=== PATIENT | male | born 1950 | race Caucasian/White ===

== ENCOUNTER 2017-02-25 07:01 | Emergency (ER) | payer MEDICARE, OTHER ==
[~2017-02-25] VITALS: Ht 177.8 cm; Wt 95.5 kg
[~2017-02-25 07:01] MED LIST: ACIP20TA19; ALBU1AER INH; ALLO100 PO; ALPR.25 PO; DOXY100T PO; LIBRAX PO; PRED20 PO; ZITH500T PO
[2017-02-25 07:08] VITALS: BP 166/90; PULSE 75; RESP 16; TEMP 98.2; O2SAT 98
[2017-02-25 07:13] VITALS: TEMP 97.9
[2017-02-25] MEDS ORDERED: ALBUAER3 INH (07:16)
[2017-02-25] MEDS ORDERED: MOME17I EACH NARE (07:17)
[2017-02-25] MEDS ORDERED: SODIUM CHLOR 0.9% 1000 ML INJ 1,000 ML IV SCH (07:29)
[2017-02-25] MEDS ORDERED: ONDANSETRON HCL 4 MG/2 ML VIAL IVP ONE (07:30)
[2017-02-25] MEDS ORDERED: SODIUM CHLORIDE 0.9% FLUSH 10 ML FLUSH IV FLUSH PRN (07:30)
[2017-02-25 07:33] VITALS: BP 135/74; PULSE 71; RESP 18; O2SAT 93
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
[2017-02-25 07:39] VITALS: O2SAT 94
[2017-02-25 08:04] LABS: AUTOMATED NEUTROPHIL # 5.7 TH/MM3 (1.8-7.7); BASOPHIL % 0.6 % (0.0-2.0); EOSINOPHIL # 0.1 TH/MM3 (0-0.4); EOSINOPHIL % 1.4 % (0.0-4.0); HEMATOCRIT 49.3 % (39.0-51.0); HEMO FLAGS DIFF FINAL; LYMPH % 16.4 % (9.0-44.0); LYMPHOCYTE # 1.3 TH/MM3 (1.0-4.8); MEAN CELL VOLUME 85.1 FL (80.0-100.0); MEAN CORPUSCULAR HEMOGLOBIN 29.1 PG (27.0-34.0); MEAN CORPUSCULAR HGB CONC 34.2 % (32.0-36.0); MONO % 10.4 % (0.0-8.0); NEUT % 71.2 % (16.0-70.0); PLATELET COUNT 213 TH/MM3 (150-450); RED BLOOD COUNT 5.79 MIL/MM3 (4.50-5.90); RED CELL DISTRIBUTION WIDTH 14.5 % (11.6-17.2); WHITE BLOOD COUNT 8.1 TH/MM3 (4.0-11.0)
[2017-02-25 08:17] LABS: ANION GAP 8 MEQ/L (5-15); AST (GOT) 20 U/L (15-37); BLOOD UREA NITROGEN 20 MG/DL (7-18); CHLORIDE 106 MEQ/L (98-107); GLOMERULAR FILTRATION RATE 66 ML/MIN (>89); POTASSIUM 4.1 MEQ/L (3.5-5.1); SODIUM (NA) 139 MEQ/L (136-145)
[2017-02-25 08:22] LABS: ALKALINE PHOSPHATASE 80 U/L (45-117); ALT (GPT) 32 U/L (12-78); TOTAL BILIRUBIN ADULT 0.2 MG/DL (0.2-1.0)
[2017-02-25 08:24] LABS: CREATINE KINASE 76 U/L (39-308)
[2017-02-25] MEDS ORDERED: DIATRIZOATE MEGLUM/DIATRIZOATE SOD 9 ML CUP ONE (08:43)
[2017-02-25 08:47] LABS: BLOOD, URINE TRACE (NEG); COMMENT (UR) CULT NOT INDICATED; CULTURE IF INDICATED CULT NOT INDICATED; GLUCOSE,URINE NEG (NEG); KETONE, URINE NEG (NEG); NITRITE,URINE NEG (NEG); URIC ACID CRYSTALS, URINE RARE /hpf; URINE COLOR YELLOW (YELLW/STRAW)
[2017-02-25] MEDS ORDERED: IOHEXOL 350 MG/ML 10 ML VIAL (for RAD DIAG) IV ONE (09:47)
--- NOTE | 2017-02-25 10:39 | RADRPT ---
EXAM DATE/TIME: 02/25/2017 09:41 [facility] COMPARISON: No previous studies available for comparison. INDICATIONS : Lower abdominal pain and nausea. IV CONTRAST: 97 cc Omnipaque 350 (iohexol) IV ORAL CONTRAST: No oral contrast ingested. RADIATION DOSE: 14.92 CTDIvol (mGy) MEDICAL HISTORY : Diverticulitis. Renal calculi. Chronic obstructive pulmonary disease.Gastritis. SURGICAL HISTORY : Cholecystectomy. ENCOUNTER: Initial ACUITY: 1 day PAIN SCALE: 4/10 LOCATION: Bilateral lower quadrant TECHNIQUE: Volumetric scanning of the abdomen and pelvis was performed. Using automated exposure control and ad justment of the mA and/or kV according to patient size, radiation dose was kept as low as reasonably achievable to obtain optimal diagnostic quality images. FINDINGS: The limited portion of the lung base visualized is clear. Examination of the liver demonstrates a 1 cm low attenuation lesion. This is nonspecific in appearanc e. The hepatic parenchyma is otherwise normal in appearance. The patient is post cholecystectomy. The spleen, pancreas, adrenal glands and kidneys are intact. There is no retroperitoneal adenopathy. The abdominal aorta is normal in caliber. No free intraperitoneal air is identified. No free intraperitoneal fluid is identified. The visualize d loops of small and large bowel demonstrates scattered diverticuli throughout the colon but no infla mmatory changes are identified. No abscess is seen. No findings to indicate bowel obstruction are mina dent. The visualized bony structures demonstrate degenerative changes but are otherwise intact. CONCLUSION: 1. No definite abnormality to explain the patient's abdominal pain is identified. 2. Incidental 1 cm low attenuation lesion within the liver. This is nonspecific in appearance by CT. Esteban Esquivel MD on February 25, 2017 at 9:52 Board Certified Radiologist. This report was verified electronically.
[2017-02-25] MEDS ORDERED: ZOFR4TAB3 SL (10:53)
--- NOTE | 2017-02-25 13:38 | EKG ---
Date Performed: 02/25/2017 Time Performed: 07:38:55 PTAGE: 66 years EKG: Sinus rhythm NORMAL ECG NO PREVIOUS TRACING DOCTOR: José Manuel Jimenez Interpretating Date/Time 02/25/2017 13:36:15
== END 2017-02-25 11:32 | disposition home or self-care (01) ==
LOC: NEPE 07:01
DX: E86.0 Dehydration (principal); K76.9 Liver disease, unspecified
CPT/HCPCS: 74177; 80053; 81001; 82550; 84484; 85025; 93005; 96361; 96374; 99284; J2405; J7030; Q9963; Q9967

== ENCOUNTER 2017-04-15 01:38 | Emergency (ER) | payer MEDICARE, OTHER ==
[~2017-04-15] VITALS: Ht 182.9 cm; Wt 99.0 kg
[~2017-04-15 01:38] MED LIST changes: -ACIP20TA19; -ALBU1AER INH; +ALBUAER3 INH; -ALLO100 PO; -ALPR.25 PO; -DOXY100T PO; -LIBRAX PO; +MOME17I EACH NARE; -PRED20 PO; -ZITH500T PO; +ZOFR4TAB3 SL
[2017-04-15 01:41] VITALS: BP 160/80; PULSE 79; RESP 16; TEMP 97.6; O2SAT 96
[2017-04-15 01:59] VITALS: BP 159/86; PULSE 77; RESP 18; O2SAT 98
[2017-04-15] MEDS ORDERED: SODIUM CHLOR 0.9% 1000 ML INJ 1,000 ML IV SCH (02:06)
[2017-04-15] MEDS ORDERED: SODIUM CHLORIDE 0.9% FLUSH 10 ML FLUSH IV FLUSH PRN (02:15)
[2017-04-15] MEDS ORDERED: ONDANSETRON HCL 4 MG/2 ML VIAL IVP ONE (02:15)
[2017-04-15] MEDS ORDERED: MORPHINE SULFATE 4 MG/ML INJ IV PUSH ONE (02:15)
--- NOTE | 2017-04-15 02:29 | PD ---
HPI Chief Complaint: Flank/Kidney Pain Time Seen by Provider: 02:06 Travel History International Travel<30 days: No Contact w/Intl Traveler<30days: No Traveled to known affect area: No History of Present Illness HPI 66-year-old male came to the emergency room with history of left flank pain and suprapubic pain for past 12 hours. Patient says the pain started slowly but he was unable to get comfortable or sleep and decided to come to the emergency room. No history of hematuria or dysuria. He has been nauseous but has not vomited. He has history of diverticulosis as per colonoscopy done 2 months ago and has history of uric acid kidney stone. However he has been on allopurinol for past 2 years and has not formed any stones. Vital signs were within normal limits. No history of fever or chills. Patient says he has been constipated for 3 days up until 3 days ago when he decided to go to his primary care. He also told his primary care that his abdomen did not feel well and he was started on clindamycin considering the possible diagnosis of diverticulitis. Since past 3 days he's started to have bowel movements little by little. Yesterday he had 7 bowel movements but they were not loose. His appetite has been good. [facility] Past Medical History Narrative Medical List of his past medical, surgical and social history was reviewed from the nursing note. Hx Anticoagulant Therapy: No Arthritis: Yes Asthma: Yes COPD: Yes Diminished Hearing: No Diverticulitis: Yes Gastrointestinal Disorders: Yes (CHRONIC GASTRITIS) GERD: Yes Genitourinary: Yes Kidney Stones: Yes (URIC ACID KIDNEY STONES) Medical other: Yes (hx of skin CA) Neurologic: Yes (PTSD) Respiratory: Yes (CHRONIC SINUSITIS) Immunizations Current: Yes Tetanus Vaccination: < 5 Years Influenza Vaccination: No Past Surgical History Cholecystectomy: Yes Social History Alcohol Use: No Tobacco Use: Yes (occasional cigar) Substance Use: No Allergies-Medications (Allergen,Severity, Reaction): Coded Allergies: Cipro (Verified Allergy, Severe, HIVES, 04/15/17) Flagyl (Verified Allergy, Severe, HIVES; CHILLS, 04/15/17) Levaquin (Verified Allergy, Severe, HIGH TEMP AND HIVES, 04/15/17) Penicillin (Verified Allergy, Unknown, CHILDHOOD, 04/15/17) Comments List of his allergies reviewed from the nursing note. Reported Meds & Prescriptions Reported Meds & Active Scripts Active Zofran Odt (Ondansetron Odt) 4 Mg Tab 4 Mg SL Q8HR PRN Reported Nasonex Nasal [place] (Mometasone Furoate) 50 Mcg/Act Naspr 2 [place] EACH NARE DAILY Proair Hfa 8.5 GM Inh (Albuterol Sulfate) 90 Mcg/Act Aer 2 Puff INH Q6H PRN 108 mcg/actuation Narrative Medication List of his home medications reviewed from the nursing note. Review of Systems Except as stated in HPI: all other systems reviewed are Neg Physical Exam Narrative GENERAL: Awake, alert, obese, moderate distress SKIN: Focused skin assessment warm/dry. HEAD: Atraumatic. Normocephalic. EYES: Pupils equal and round. No scleral icterus. No injection or drainage. ENT: No nasal bleeding or discharge. Mucous membranes pink and moist. NECK: Trachea midline. No JVD. CARDIOVASCULAR: Regular rate and rhythm. No murmur appreciated. RESPIRATORY: No accessory muscle use. Clear to auscultation. Breath sounds equal bilaterally. GASTROINTESTINAL: Abdomen soft, suprapubic tenderness, nondistended. Hepatic and splenic margins not palpable. MUSCULOSKELETAL: No obvious deformities. No clubbing. No cyanosis. No edema. NEUROLOGICAL: Awake and alert. No obvious cranial nerve deficits. Motor grossly within normal limits. Normal speech. PSYCHIATRIC: Appropriate mood and affect; insight and judgment normal. Data Data Last Documented VS Vital Signs Date Time Temp Pulse Resp B/P Pulse Ox O2 Delivery O2 Flow Rate FiO2 04/15/17 06:08 62 18 137/80 96 04/15/17 05:20 Room Air 04/15/17 01:41 97.6 Orders Complete Blood Count With Diff (04/15/17 02:06) Comprehensive Metabolic Panel (04/15/17 02:06) Urinalysis - C+S If Indicated (04/15/17 02:06) Ct Abd/Pel W/O Iv Contrast (04/15/17 02:06) Iv Access Insert/Monitor (04/15/17 02:06) Ecg Monitoring (04/15/17 02:06) Oximetry (04/15/17 02:06) Morphine Inj (Morphine Inj) (04/15/17 02:15) Ondansetron Inj (Zofran Inj) (04/15/17 02:15) Sodium Chlor 0.9% 1000 Ml Inj (Ns 1000 M (04/15/17 02:06) Sodium Chloride 0.9% Flush (Ns Flush) (04/15/17 02:15) Ketorolac Inj (Toradol Inj) (04/15/17 02:30) Metronidazole (Flagyl) (04/15/17 05:00) Clindamycin Inj (Cleocin Inj) (04/15/17 05:00) Ondansetron Inj (Zofran Inj) (04/15/17 06:00) Labs Laboratory Tests Test 04/15/17 04/15/17 02:20 03:20 White Blood Count 11.5 TH/MM3 Red Blood Count 5.59 MIL/MM3 Hemoglobin 15.6 GM/DL Hematocrit 46.7 % Mean Corpuscular Volume 83.5 FL Mean Corpuscular Hemoglobin 28.0 PG Mean Corpuscular Hemoglobin 33.5 % Concent Red Cell Distribution Width 14.5 % Platelet Count 202 TH/MM3 Mean Platelet Volume 9.2 FL Neutrophils (%) (Auto) 75.4 % Lymphocytes (%) (Auto) 14.5 % Monocytes (%) (Auto) 8.7 % Eosinophils (%) (Auto) 0.9 % Basophils (%) (Auto) 0.5 % Neutrophils # (Auto) 8.6 TH/MM3 Lymphocytes # (Auto) 1.7 TH/MM3 Monocytes # (Auto) 1.0 TH/MM3 Eosinophils # (Auto) 0.1 TH/MM3 Basophils # (Auto) 0.1 TH/MM3 CBC Comment DIFF FINAL Differential Comment Sodium Level 140 MEQ/L Potassium Level 4.3 MEQ/L Chloride Level 107 MEQ/L Carbon Dioxide Level 27.1 MEQ/L Anion Gap 6 MEQ/L Blood Urea Nitrogen 16 MG/DL Creatinine 1.28 MG/DL Estimat Glomerular Filtration 56 ML/MIN Rate Random Glucose 119 MG/DL Calcium Level 8.5 MG/DL Total Bilirubin 0.3 MG/DL Aspartate Amino Transf 20 U/L (AST/SGOT) Alanine Aminotransferase 23 U/L (ALT/SGPT) Alkaline Phosphatase 81 U/L Total Protein 7.4 GM/DL Albumin 3.5 GM/DL Urine Color LIGHT-YELLOW Urine Turbidity CLEAR Urine pH 6.5 Urine Specific [place] 1.010 Urine Protein NEG mg/dL Urine Glucose (UA) NEG mg/dL Urine Ketones NEG mg/dL Urine Occult Blood NEG Urine Nitrite NEG Urine Bilirubin NEG Urine Urobilinogen LESS THAN 2.0 MG/DL Urine Leukocyte Esterase NEG Urine RBC 1 /hpf Urine WBC LESS THAN 1 /hpf Microscopic Urinalysis Comment CULT NOT INDICATED MDM Medical Decision Making Medical Screen Exam Complete: Yes Emergency Medical Condition: Yes Medical Record Reviewed: Yes Differential Diagnosis Renal colic, acute diverticulitis, cystitis Narrative Course 3:34 AM blood test results of back and within acceptable limits. Awaiting for the UA and the CAT scan to be done and resulted. Patient was medicated for pain. 5:08 AM CAT scan report just came back and is suggestive of diverticulitis. Patient is allergic to ciprofloxacin, Flagyl, Levaquin and penicillin. Hence there is no other choice except for clindamycin. I chose to give him a dose of IV clindamycin 900 mg and then discharge him home with instructions for clear diet. Discussed all this with the patient and his and answered all the questions to the best of my ability. Patient will be discharged home. Procedures EKG Prior to Arrival: No Diagnosis Primary Impression: Diverticulitis Qualified Code: K57.32 - Diverticulitis of large intestine without perforation or abscess without bleeding Referrals: Primary Care Physician 3 days Additional Instructions: Please finish the course of the antibiotic as per the prescription direction given by her primary care. Take clear liquid diet over next 72 hours just like it was discussed with you. Return to the ER if the pain worsens, fever, vomiting or any others new symptoms. Otherwise follow-up with your primary care on Tuesday. Scripts Ondansetron Odt (Zofran Odt)4 Mg Tab4 Mg SL Q8HR PRN (Nausea/Vomiting) #30 TAB Ref 0 Prov:Vee Pierre MD 04/15/17 Disposition: 01 DISCHARGE HOME Condition: Stable Vee Pierre MD April 15, 2017 02:29
[2017-04-15] MEDS ORDERED: KETOROLAC TROMETHAMINE 30 MG/ML (IVP) VIAL IV PUSH ONE (02:30)
[2017-04-15 02:34] VITALS: O2SAT 98
[2017-04-15 02:40] LABS: AUTOMATED NEUTROPHIL # 8.6 TH/MM3 (1.8-7.7); BASOPHIL # 0.1 TH/MM3 (0-0.2); BASOPHIL % 0.5 % (0.0-2.0); EOSINOPHIL # 0.1 TH/MM3 (0-0.4); EOSINOPHIL % 0.9 % (0.0-4.0); HEMATOCRIT 46.7 % (39.0-51.0); HEMO FLAGS DIFF FINAL; LYMPH % 14.5 % (9.0-44.0); LYMPHOCYTE # 1.7 TH/MM3 (1.0-4.8); MEAN CELL VOLUME 83.5 FL (80.0-100.0); MEAN CORPUSCULAR HGB CONC 33.5 % (32.0-36.0); MONO % 8.7 % (0.0-8.0); NEUT % 75.4 % (16.0-70.0); PLATELET COUNT 202 TH/MM3 (150-450); RED BLOOD COUNT 5.59 MIL/MM3 (4.50-5.90); RED CELL DISTRIBUTION WIDTH 14.5 % (11.6-17.2); WHITE BLOOD COUNT 11.5 TH/MM3 (4.0-11.0)
[2017-04-15 03:07] LABS: ALKALINE PHOSPHATASE 81 U/L (45-117); TOTAL BILIRUBIN ADULT 0.3 MG/DL (0.2-1.0)
[2017-04-15 03:17] LABS: ALT (GPT) 23 U/L (12-78); ANION GAP 6 MEQ/L (5-15); AST (GOT) 20 U/L (15-37); BICARBONATE 27.1 MEQ/L (21.0-32.0); BLOOD UREA NITROGEN 16 MG/DL (7-18); CHLORIDE 107 MEQ/L (98-107); GLOMERULAR FILTRATION RATE 56 ML/MIN (>89); POTASSIUM 4.3 MEQ/L (3.5-5.1); SODIUM (NA) 140 MEQ/L (136-145)
[2017-04-15 03:44] LABS: BLOOD, URINE NEG (NEG); COMMENT (UR) CULT NOT INDICATED; CULTURE IF INDICATED CULT NOT INDICATED; GLUCOSE,URINE NEG (NEG); KETONE, URINE NEG (NEG); NITRITE,URINE NEG (NEG); PH, URINE 6.5 (5.0-8.5); URINE COLOR LIGHT-YELLOW (YELLW/STRAW)
--- NOTE | 2017-04-15 04:54 | RADRPT ---
EXAM DATE/TIME: 04/15/2017 04:17 [facility] COMPARISON: No previous studies available for comparison. INDICATIONS : Left flank pain ORAL CONTRAST: No oral contrast ingested. RADIATION DOSE: 10.87 CTDIvol (mGy) MEDICAL HISTORY : Diverticulosis. Gastroesophageal reflux disease. Renal calculi.Gastritis SURGICAL HISTORY : Cholecystectomy. ENCOUNTER: Initial ACUITY: 1 day PAIN SCALE: 5/10 LOCATION: Left Abdomen TECHNIQUE: Volumetric scanning of the abdomen and pelvis was performed. Using automated exposure control and ad justment of the mA and/or kV according to patient size, radiation dose was kept as low as reasonably achievable to obtain optimal diagnostic quality images. FINDINGS: LOWER LUNGS: The visualized lower lungs are clear. LIVER: Homogeneous density without lesion. There is no dilation of the biliary tree. Status post cholecyste ctomy SPLEEN: Normal size without lesion. PANCREAS: Within normal limits. KIDNEYS: Normal in size and shape. There is no mass, stone, or hydronephrosis. ADRENAL GLANDS: Within normal limits. VASCULAR: There is no aortic aneurysm. BOWEL/MESENTERY: The stomach, small bowel, and colon demonstrate no acute abnormality. There is no free intraperitone al air or fluid. There is extensive diverticulosis. On the reformatted images there some questionable inflammation within one of the sigmoid diverticula there is directly superior to the sigmoid colon c ould be diverticulitis ABDOMINAL WALL: Within normal limits. RETROPERITONEUM: There is no lymphadenopathy. BLADDER: No wall thickening or mass. REPRODUCTIVE: Within normal limits. INGUINAL: There is no lymphadenopathy or hernia. MUSCULOSKELETAL: Within normal limits for patient age. CONCLUSION: Diverticulosis with a questionable small area of diverticulitis in the right mid pelvis. No evidence of free fluid, free air or obvious abscess. No evidence of active or chronic renal stone Joshua Matson MD on April 15, 2017 at 4:51 Board Certified Radiologist. This report was verified electronically.
[2017-04-15] MEDS ORDERED: CLINDAMYCIN INJ 900 MG in SODIUM CHLORIDE 0.9% INJ 100 ML IV ONE (05:00)
[2017-04-15] MEDS ORDERED: metroNIDAZOLE 500 MG TAB PO ONE (05:00)
[2017-04-15 05:20] VITALS: BP 155/73; PULSE 63; RESP 18; O2SAT 96
[2017-04-15] MEDS ORDERED: ZOFR4TAB3 SL (05:57)
[2017-04-15] MEDS ORDERED: ONDANSETRON HCL 4 MG/2 ML VIAL IV PUSH ONE (06:00)
[2017-04-15 06:08] VITALS: BP 137/80
== END 2017-04-15 06:09 | disposition home or self-care (01) ==
LOC: NEPC 01:38
DX: K57.32 Diverticulitis of large intestine without perforation or abscess without bleeding (principal); J45.909 Unspecified asthma, uncomplicated; K21.9 Gastro-esophageal reflux disease without esophagitis; J32.9 Chronic sinusitis, unspecified; Z87.442 Personal history of urinary calculi; F43.10 Post-traumatic stress disorder, unspecified; K29.50 Unspecified chronic gastritis without bleeding
CPT/HCPCS: 74176; 80053; 81001; 85025; 96374; 96375; 99285; J1885; J2405; J7030

== ENCOUNTER 2017-06-21 13:33 | Emergency (ER) | payer MEDICARE, OTHER ==
[2017-06-21 13:35] VITALS: BP 164/86; PULSE 82; RESP 18; TEMP 97.8; O2SAT 96
[2017-06-21] MEDS ORDERED: ALLO100T PO (14:13)
[2017-06-21] MEDS ORDERED: SODIUM CHLORIDE 0.9% FLUSH 10 ML FLUSH IV FLUSH PRN (14:30)
[2017-06-21 15:32] LABS: AUTOMATED NEUTROPHIL # 6.1 TH/MM3 (1.8-7.7); BASOPHIL # 0.1 TH/MM3 (0-0.2); BASOPHIL % 0.7 % (0.0-2.0); EOSINOPHIL # 0.2 TH/MM3 (0-0.4); HEMATOCRIT 50.9 % (39.0-51.0); HEMO FLAGS DIFF FINAL; LYMPH % 17.6 % (9.0-44.0); LYMPHOCYTE # 1.5 TH/MM3 (1.0-4.8); MEAN CELL VOLUME 85.2 FL (80.0-100.0); MEAN CORPUSCULAR HEMOGLOBIN 28.3 PG (27.0-34.0); MEAN CORPUSCULAR HGB CONC 33.2 % (32.0-36.0); MONO % 9.3 % (0.0-8.0); NEUT % 70.4 % (16.0-70.0); PLATELET COUNT 228 TH/MM3 (150-450); RED BLOOD COUNT 5.98 MIL/MM3 (4.50-5.90); RED CELL DISTRIBUTION WIDTH 14.4 % (11.6-17.2); WHITE BLOOD COUNT 8.7 TH/MM3 (4.0-11.0)
--- NOTE | 2017-06-21 15:35 | RADRPT ---
EXAM DATE/TIME: 06/21/2017 14:39 [facility] COMPARISON: CT ABDOMEN & PELVIS W/O CONTRAST, April 15, 2017, 4:17. INDICATIONS : Abdomen pain and gas. Patient states he has lost 25 pounds in the last month. MEDICAL HISTORY : Diverticulosis. Gastroesophageal reflux disease. Renal calculi.Gastritis SURGICAL HISTORY : Cholecystectomy. ENCOUNTER: Initial ACUITY: 1 month PAIN SCORE: 4/10 LOCATION: Bilateral Abdomen. FINDINGS: Single portable upright view of the abdomen demonstrates air within bowel in a nonobstructive pattern . No organomegaly or abnormal calcifications are seen. No free air is seen. Lung bases demonstrate no acute finding. There are degenerative changes of the spine. CONCLUSION: No acute abnormality is identified. Jean Pierre Harvey MD on June 21, 2017 at 15:33 Board Certified Radiologist. This report was verified electronically.
[2017-06-21 15:46] LABS: BACTERIA, URINE OCC /hpf; BLOOD, URINE TRACE (NEG); GLUCOSE,URINE NEG (NEG); KETONE, URINE NEG (NEG); MUCUS URINE FEW /lpf (OCC); NITRITE,URINE NEG (NEG); SQUAMOUS EPITHELIAL CELL URINE <1 /hpf (0-5); URIC ACID CRYSTALS, URINE MANY /hpf; URINE COLOR YELLOW (YELLW/STRAW)
[2017-06-21 15:47] LABS: COMMENT (UR) CULT NOT INDICATED; CULTURE IF INDICATED CULT NOT INDICATED
[2017-06-21 15:54] LABS: ALT (GPT) 30 U/L (12-78); ANION GAP 7 MEQ/L (5-15); AST (GOT) 18 U/L (15-37); BICARBONATE 27.2 MEQ/L (21.0-32.0); BLOOD UREA NITROGEN 19 MG/DL (7-18); CHLORIDE 106 MEQ/L (98-107); GLOMERULAR FILTRATION RATE 68 ML/MIN (>89); SODIUM (NA) 140 MEQ/L (136-145)
[2017-06-21 15:56] LABS: ALKALINE PHOSPHATASE 81 U/L (45-117); TOTAL BILIRUBIN ADULT 0.3 MG/DL (0.2-1.0)
--- NOTE | 2017-06-21 15:56 | PD ---
HPI Chief Complaint: GI Complaint Time Seen by Provider: 14:10 Travel History International Travel<30 days: No Contact w/Intl Traveler<30days: No Traveled to known affect area: No History of Present Illness HPI 66 YO M with PMH of GERD and diverticulitis presents to the ED for evaluation of 3 day history of abdominal discomfort and less than 24-hour history of watery diarrhea. The patient denies fever, chills, nausea, vomiting. He states that he's been eating a "bland diet" and seeing his prison keeper last week. States his stools have been yellow since the diet change. Today he endorses 4 episodes of watery diarrhea. He endorses some lower abdominal cramping and passing copious amounts of gas. He denies dysuria or back pain. He endorses recent history of clindamycin and azithromycin use. PFSH Past Medical History Hx Anticoagulant Therapy: No Arthritis: Yes Asthma: Yes COPD: Yes Diminished Hearing: No Diverticulitis: Yes Gastrointestinal Disorders: Yes (CHRONIC GASTRITIS) GERD: Yes Genitourinary: Yes Kidney Stones: Yes (URIC ACID KIDNEY STONES) Medical other: Yes (URIC ACID STONES R KIDNEY) Neurologic: Yes (PTSD) Respiratory: Yes (CHRONIC SINUSITIS) Immunizations Current: Yes Past Surgical History Cholecystectomy: Yes Social History Alcohol Use: No Tobacco Use: Yes (occasional cigar) Substance Use: No Allergies-Medications (Allergen,Severity, Reaction): Coded Allergies: Cipro (Verified Allergy, Severe, HIVES, 06/21/17) Flagyl (Verified Allergy, Severe, HIVES; CHILLS, 06/21/17) Levaquin (Verified Allergy, Severe, HIGH TEMP AND HIVES, 06/21/17) Penicillin (Verified Allergy, Unknown, CHILDHOOD, 06/21/17) Reported Meds & Prescriptions Reported Meds & Active Scripts Active Bentyl (Dicyclomine HCl) 10 Mg Cap 10 Mg PO TID Zofran Odt (Ondansetron Odt) 4 Mg Tab 4 Mg SL Q8HR PRN Reported Allopurinol 100 Mg Tab 100 Mg PO DAILY Nasonex Nasal [place] (Mometasone Furoate) 50 Mcg/Act Naspr 2 [place] EACH NARE DAILY Proair Hfa 8.5 GM Inh (Albuterol Sulfate) 90 Mcg/Act Aer 2 Puff INH Q6H PRN 108 mcg/actuation Review of Systems Except as stated in HPI: all other systems reviewed are Neg Physical Exam Narrative GENERAL: Well-nourished, well-developed white male in no acute distress.. SKIN: Focused skin assessment warm/dry. HEAD: Normocephalic. EYES: No scleral icterus. No injection or drainage. NECK: Supple, trachea midline. No JVD or lymphadenopathy. CARDIOVASCULAR: Regular rate and rhythm without murmurs, gallops, or rubs. RESPIRATORY: Breath sounds clear and equal bilaterally. No accessory muscle use. GASTROINTESTINAL: Abdomen soft, nondistended. Mild tenderness to palpation in the left periumbilical region. Active bowel sounds. No palpable masses. MUSCULOSKELETAL: No cyanosis, or edema. BACK: Nontender without obvious deformity. No CVA tenderness. Data Data Last Documented VS Vital Signs Date Time Temp Pulse Resp B/P Pulse Ox O2 Delivery O2 Flow Rate FiO2 06/21/17 13:35 97.8 82 18 164/86 96 Orders Complete Blood Count With Diff (06/21/17 14:17) Comprehensive Metabolic Panel (06/21/17 14:17) Lipase (06/21/17 14:17) Lactic Acid (06/21/17 14:17) Urinalysis - C+S If Indicated (06/21/17 14:17) Iv Access Insert/Monitor (06/21/17 14:17) Ecg Monitoring (06/21/17 14:17) Oximetry (06/21/17 14:17) Sodium Chloride 0.9% Flush (Ns Flush) (06/21/17 14:30) Abdomen, Upright Only (06/21/17 14:17) Labs Laboratory Tests Test 06/21/17 14:30 White Blood Count 8.7 TH/MM3 Red Blood Count 5.98 MIL/MM3 Hemoglobin 16.9 GM/DL Hematocrit 50.9 % Mean Corpuscular Volume 85.2 FL Mean Corpuscular Hemoglobin 28.3 PG Mean Corpuscular Hemoglobin 33.2 % Concent Red Cell Distribution Width 14.4 % Platelet Count 228 TH/MM3 Mean Platelet Volume 9.7 FL Neutrophils (%) (Auto) 70.4 % Lymphocytes (%) (Auto) 17.6 % Monocytes (%) (Auto) 9.3 % Eosinophils (%) (Auto) 2.0 % Basophils (%) (Auto) 0.7 % Neutrophils # (Auto) 6.1 TH/MM3 Lymphocytes # (Auto) 1.5 TH/MM3 Monocytes # (Auto) 0.8 TH/MM3 Eosinophils # (Auto) 0.2 TH/MM3 Basophils # (Auto) 0.1 TH/MM3 CBC Comment DIFF FINAL Differential Comment Urine Color YELLOW Urine Turbidity CLOUDY Urine pH 5.[address] [place] 1.029 Urine Protein TRACE mg/dL Urine Glucose (UA) NEG mg/dL Urine Ketones NEG mg/dL Urine Occult Blood TRACE Urine Nitrite NEG Urine Bilirubin NEG Urine Urobilinogen LESS THAN 2.0 MG/DL Urine Leukocyte Esterase NEG Urine RBC 3 /hpf Urine WBC 2 /hpf Urine Squamous Epithelial <1 /hpf Cells Urine Uric Acid Crystals MANY /hpf Urine Bacteria OCC /hpf Urine Mucus FEW /lpf Microscopic Urinalysis Comment CULT NOT INDICATED Sodium Level 140 MEQ/L Potassium Level 4.0 MEQ/L Chloride Level 106 MEQ/L Carbon Dioxide Level 27.2 MEQ/L Anion Gap 7 MEQ/L Blood Urea Nitrogen 19 MG/DL Creatinine 1.09 MG/DL Estimat Glomerular Filtration 68 ML/MIN Rate Random Glucose 128 MG/DL Lactic Acid Level 0.7 mmol/L Calcium Level 8.9 MG/DL Total Bilirubin 0.3 MG/DL Aspartate Amino Transf 18 U/L (AST/SGOT) Alanine Aminotransferase 30 U/L (ALT/SGPT) Alkaline Phosphatase 81 U/L Total Protein 8.1 GM/DL Albumin 3.9 GM/DL Lipase 255 U/L [facility] Medical Decision Making Medical Screen Exam Complete: Yes Emergency Medical Condition: Yes Differential Diagnosis Gastritis versus diverticulitis versus C. difficile versus cardiac versus GERD versus less likely obstruction versus other Narrative Course 66 YO M with PMH of GERD and diverticulitis presents to the ED for evaluation of 3 day history of abdominal discomfort, bloating and less than 24-hour history of watery diarrhea. The patient denies fever, chills, nausea, vomiting. He states that he's been eating a "bland diet" and seeing his prison keeper last week. States his stools have been yellow since the diet change. Today he endorses 4 episodes of watery diarrhea. He endorses some lower abdominal cramping and passing copious amounts of gas. He denies dysuria or back pain. He endorses recent history of clindamycin and azithromycin use. Vitals reviewed. On physical exam the patient is nontoxic appearing, abdominal exam is benign. CBC, CMP,'s UA unremarkable. Dr. Alex discussed beginning antibiotics given his risk for C. difficile. However the patient states that he has "a lot of problems with antibiotics." Ultimately they decided that he would take Bentyl and follow up with his prison keeper. Patient stable and discharged home. Diagnosis Primary Impression: Abdominal pain Qualified Code: R10.84 - Generalized abdominal pain Additional Impression: Diarrhea Qualified Code: R19.7 - Diarrhea, unspecified type Referrals: Blaise Umanzor MD Patient Instructions: Abdominal Pain (ED), Acute Diarrhea (ED), General Instructions Additional Instructions: Rest, hydrate. Continue bland diet as tolerated. Take Bentyl as prescribed. Follow-up with prison keeper as discussed. Return to the ED for any urgent or emergent medical condition. Med/Other Pt SpecificInfo: Prescription(s) given Scripts Dicyclomine (Bentyl)10 Mg Cap10 Mg PO TID #30 CAP Ref 0 Prov:Mary Interiano 06/21/17 Disposition: 01 DISCHARGE HOME Condition: Stable Mary Interiano Jun 21, 2017 15:56
[2017-06-21] MEDS ORDERED: CIPR-9 PO (16:03)
[2017-06-21] MEDS ORDERED: VANC125C3 PO (16:03)
[2017-06-21] MEDS ORDERED: DICY10 PO (16:09)
--- NOTE | 2017-06-21 16:48 | PD ---
Data Data Last Documented VS Vital Signs Date Time Temp Pulse Resp B/P Pulse Ox O2 Delivery O2 Flow Rate FiO2 06/21/17 13:35 97.8 82 18 164/86 96 Orders Complete Blood Count With Diff (06/21/17 14:17) Comprehensive Metabolic Panel (06/21/17 14:17) Lipase (06/21/17 14:17) Lactic Acid (06/21/17 14:17) Urinalysis - C+S If Indicated (06/21/17 14:17) Iv Access Insert/Monitor (06/21/17 14:17) Ecg Monitoring (06/21/17 14:17) Oximetry (06/21/17 14:17) Sodium Chloride 0.9% Flush (Ns Flush) (06/21/17 14:30) Abdomen, Upright Only (06/21/17 14:17) Labs Laboratory Tests Test 06/21/17 14:30 White Blood Count 8.7 TH/MM3 Red Blood Count 5.98 MIL/MM3 Hemoglobin 16.9 GM/DL Hematocrit 50.9 % Mean Corpuscular Volume 85.2 FL Mean Corpuscular Hemoglobin 28.3 PG Mean Corpuscular Hemoglobin 33.2 % Concent Red Cell Distribution Width 14.4 % Platelet Count 228 TH/MM3 Mean Platelet Volume 9.7 FL Neutrophils (%) (Auto) 70.4 % Lymphocytes (%) (Auto) 17.6 % Monocytes (%) (Auto) 9.3 % Eosinophils (%) (Auto) 2.0 % Basophils (%) (Auto) 0.7 % Neutrophils # (Auto) 6.1 TH/MM3 Lymphocytes # (Auto) 1.5 TH/MM3 Monocytes # (Auto) 0.8 TH/MM3 Eosinophils # (Auto) 0.2 TH/MM3 Basophils # (Auto) 0.1 TH/MM3 CBC Comment DIFF FINAL Differential Comment Urine Color YELLOW Urine Turbidity CLOUDY Urine pH 5.0 Urine Specific [place] 1.029 Urine Protein TRACE mg/dL Urine Glucose (UA) NEG mg/dL Urine Ketones NEG mg/dL Urine Occult Blood TRACE Urine Nitrite NEG Urine Bilirubin NEG Urine Urobilinogen LESS THAN 2.0 MG/DL Urine Leukocyte Esterase NEG Urine RBC 3 /hpf Urine WBC 2 /hpf Urine Squamous Epithelial <1 /hpf Cells Urine Uric Acid Crystals MANY /hpf Urine Bacteria OCC /hpf Urine Mucus FEW /lpf Microscopic Urinalysis Comment CULT NOT INDICATED Sodium Level 140 MEQ/L Potassium Level 4.0 MEQ/L Chloride Level 106 MEQ/L Carbon Dioxide Level 27.2 MEQ/L Anion Gap 7 MEQ/L Blood Urea Nitrogen 19 MG/DL Creatinine 1.09 MG/DL Estimat Glomerular Filtration 68 ML/MIN Rate Random Glucose 128 MG/DL Lactic Acid Level 0.7 mmol/L Calcium Level 8.9 MG/DL Total Bilirubin 0.3 MG/DL Aspartate Amino Transf 18 U/L (AST/SGOT) Alanine Aminotransferase 30 U/L (ALT/SGPT) Alkaline Phosphatase 81 U/L Total Protein 8.1 GM/DL Albumin 3.9 GM/DL Lipase 255 U/L [facility] Supervised Visit with CHAY: Yes Narrative Course The history, exam, and medical decision-making in the associated midlevel provider note were completed with my assistance. I reviewed and agree with the findings presented. I attest that I had a [id number] encounter with the patient on the same day, and personally performed and documented my assessment and findings in the medical record. *My assessment and Findings: This is a 66-year-old male who presents to the emergency department with multiple GI complaints including loose stools, bloating, abdominal cramping and 25 pound weight loss over the past several months. He says he lost a lot of weight in the past when he had ulcers. He follows with Dr. Blair. He appears very well and has a completely benign abdomen. I had a long conversation with him regarding possibility of doing antibiotic therapy for early diverticulitis or C. difficile but he is allergic to Cipro and Flagyl and would prefer not to antibiotics. We will place him on Bentyl and he can follow-up with his GI doctor. I don't think he requires any imaging given his well appearance and benign exam. Diagnosis Primary Impression: Abdominal pain Qualified Code: R10.84 - Generalized abdominal pain Additional Impression: Diarrhea Qualified Code: R19.7 - Diarrhea, unspecified type Referrals: Blaise Umanzor MD Patient Instructions: General Instructions, Acute Diarrhea (ED), Abdominal Pain (ED) Departure Forms: Tests/Procedures Additional Instruction: Rest, hydrate. Continue bland diet as tolerated. Take Bentyl as prescribed. Follow-up with nursing assoc as discussed. Return to the ED for any urgent or emergent medical condition. Scripts Dicyclomine (Bentyl)10 Mg Cap10 Mg PO TID #30 CAP Ref 0 Prov:Mary Interiano 06/21/17 Disposition: 01 DISCHARGE HOME Condition: Stable Sasha Alex MD Jun 21, 2017 16:48
== END 2017-06-21 17:41 | disposition home or self-care (01) ==
LOC: NEPD 13:33
DX: R10.84 Generalized abdominal pain (principal); R19.7 Diarrhea, unspecified; R63.4 Abnormal weight loss; Z72.0 Tobacco use; Z87.39 Personal history of other diseases of the musculoskeletal system and connective tissue; Z87.09 Personal history of other diseases of the respiratory system; Z87.19 Personal history of other diseases of the digestive system; Z87.442 Personal history of urinary calculi; Z86.69 Personal history of other diseases of the nervous system and sense organs; Z86.59 Personal history of other mental and behavioral disorders
CPT/HCPCS: 74000; 80053; 81001; 83605; 83690; 85025; 99284

== ENCOUNTER 2017-11-25 05:47 | Emergency (ER) | payer MEDICARE, OTHER ==
[~2017-11-25] VITALS: Ht 177.8 cm; Wt 91.0 kg
[~2017-11-25 05:47] MED LIST changes: +ALLO100T PO; +DICY10 PO
[2017-11-25 05:51] VITALS: BP 184/84; PULSE 82; RESP 16; TEMP 97.9; O2SAT 95
[2017-11-25 06:38] LABS: AUTOMATED NEUTROPHIL # 7.3 TH/MM3 (1.8-7.7); BASOPHIL # 0.1 TH/MM3 (0-0.2); BASOPHIL % 0.6 % (0.0-2.0); EOSINOPHIL # 0.3 TH/MM3 (0-0.4); EOSINOPHIL % 2.6 % (0.0-4.0); HEMATOCRIT 53.1 % (39.0-51.0); HEMOGLOBIN 17.5 GM/DL (13.0-17.0); LYMPH % 18.1 % (9.0-44.0); LYMPHOCYTE # 1.9 TH/MM3 (1.0-4.8); MEAN CELL VOLUME 86.2 FL (80.0-100.0); MEAN CORPUSCULAR HEMOGLOBIN 28.5 PG (27.0-34.0); MEAN PLATELET VOLUME 9.4 FL (7.0-11.0); MONO % 9.5 % (0.0-8.0); NEUT % 69.2 % (16.0-70.0); PLATELET COUNT 218 TH/MM3 (150-450); RED BLOOD COUNT 6.15 MIL/MM3 (4.50-5.90); WHITE BLOOD COUNT 10.6 TH/MM3 (4.0-11.0)
[2017-11-25 06:43] LABS: BILIRUBIN, URINE NEG (NEG); BLOOD, URINE NEG (NEG); GLUCOSE,URINE NEG (NEG); KETONE, URINE NEG (NEG); MUCUS URINE FEW /lpf (OCC); NITRITE,URINE NEG (NEG); URINE COLOR YELLOW (YELLW/STRAW); URINE LEUKOCYTE ESTERASE NEG (NEG)
[2017-11-25] MEDS ORDERED: DIATRIZOATE MEGLUM/DIATRIZOATE SOD 9 ML CUP ONE (06:43)
--- NOTE | 2017-11-25 06:43 | PD ---
HPI Chief Complaint: Pain: Acute or Chronic Time Seen by Provider: 06:29 Travel History International Travel<30 days: No Contact w/Intl Traveler<30days: No Traveled to known affect area: No History of Present Illness HPI Patient is a 67-year-old male has a history of diverticulitis was admitted back in February for the same. Now the last 5 days he's had increasing pain in his right lower periumbilical abdomen. Made worse with food these eaten he's been having normal bowel movements he does not report constipation he does not report diarrhea he's had no vomit he just says he feels is getting worse and food seems to exacerbate it denies diabetes denies hypertension he's had cholecystitis surgery about a year ago he's had a colonoscopy also about a year ago. Nausea focal pain is his main complaint it started 5 days ago he's taken nothing to make it better and food seems to aggravate it. He has not seen another doctor for this PFSH Past Medical History Hx Anticoagulant Therapy: No Arthritis: Yes Asthma: Yes COPD: Yes Diminished Hearing: No Diverticulitis: Yes Gastrointestinal Disorders: Yes (CHRONIC GASTRITIS) GERD: Yes Genitourinary: Yes Kidney Stones: Yes (URIC ACID KIDNEY STONES) Neurologic: Yes (PTSD) Respiratory: Yes (CHRONIC SINUSITIS) Immunizations Current: Yes Tetanus Vaccination: < 5 Years Past Surgical History Cholecystectomy: Yes Social History Alcohol Use: No Tobacco Use: Yes (occasional cigar) Substance Use: No Allergies-Medications (Allergen,Severity, Reaction): Coded Allergies: ciprofloxacin (Unverified Allergy, Severe, HIVES, 11/25/17) levofloxacin (Unverified Allergy, Severe, HIGH TEMP AND HIVES, 11/25/17) metronidazole (Unverified Allergy, Severe, HIVES; CHILLS, 11/25/17) penicillin G (Unverified Allergy, Unknown, CHILDHOOD, 11/25/17) doxycycline (Verified Adverse Reaction, Intermediate, Nausea/Vomiting, 11/25) Reported Meds & Prescriptions Reported Meds & Active Scripts Active Carafate (Sucralfate) 1 Gram Tab 1 Gm PO QID On empty stomach Reported Allopurinol 100 Mg Tab 100 Mg PO DAILY Proair Hfa 8.5 GM Inh (Albuterol Sulfate) 90 Mcg/Act Aer 2 Puff INH Q6H PRN 108 mcg/actuation Review of Systems Except as stated in HPI: all other systems reviewed are Neg Physical Exam Narrative GENERAL: Patient is awake alert nontoxic appearing poor dentition is noted SKIN: Warm and dry. HEAD: Atraumatic. Normocephalic. EYES: Pupils equal and round. No scleral icterus. No injection or drainage. ENT: No nasal bleeding or discharge. Mucous membranes pink and moist. Missing many teeth on the bottom NECK: Trachea midline. No JVD. CARDIOVASCULAR: Regular rate and rhythm. RESPIRATORY: No accessory muscle use. Clear to auscultation. Breath sounds equal bilaterally. GASTROINTESTINAL: Abdomen soft, mildly tender right lower right abdo to inguinal area-tender, nondistended. Hepatic and splenic margins not palpable. MUSCULOSKELETAL: Extremities without clubbing, cyanosis, or edema. No obvious deformities. NEUROLOGICAL: Awake and alert. No obvious cranial nerve deficits. Motor grossly within normal limits. Five out of 5 muscle strength in the arms and legs. Normal speech. PSYCHIATRIC: Appropriate mood and affect; insight and judgment normal. Data Data Last Documented VS Vital Signs Date Time Temp Pulse Resp B/P (MAP) Pulse Ox O2 Delivery O2 Flow Rate FiO2 11/25/17 09:05 97.8 76 17 126/81 (96) 99 11/25/17 07:05 Room Air Orders Orders Urinalysis - C+S If Indicated (11/25/17 06:07) Complete Blood Count With Diff (11/25/17 06:07) Comprehensive Metabolic Panel (11/25/17 06:07) Ct Abd/Pel W Iv Contrast(Rout) (11/25/17 ) Diatrizoate Liq ( Gastroview Liq) (11/25/17 06:43) Oral Contrast - Adult (11/25/17 06:47) Ondansetron Inj (Zofran Inj) (11/25/17 07:00) Famotidine Inj (Pepcid Inj) (11/25/17 07:00) Iohexol 350 Inj (Omnipaque 350 Inj) (11/25/17 08:19) Ed Discharge Order (11/25/17 09:02) Labs Laboratory Tests Test 11/25/17 06:10 White Blood Count 10.6 TH/MM3 Red Blood Count 6.15 MIL/MM3 Hemoglobin 17.5 GM/DL Hematocrit 53.1 % Mean Corpuscular Volume 86.2 FL Mean Corpuscular Hemoglobin 28.5 PG Mean Corpuscular Hemoglobin Concent 33.0 % Red Cell Distribution Width 15.0 % Platelet Count 218 TH/MM3 Mean Platelet Volume 9.4 FL Neutrophils (%) (Auto) 69.2 % Lymphocytes (%) (Auto) 18.1 % Monocytes (%) (Auto) 9.5 % Eosinophils (%) (Auto) 2.6 % Basophils (%) (Auto) 0.6 % Neutrophils # (Auto) 7.3 TH/MM3 Lymphocytes # (Auto) 1.9 TH/MM3 Monocytes # (Auto) 1.0 TH/MM3 Eosinophils # (Auto) 0.3 TH/MM3 Basophils # (Auto) 0.1 TH/MM3 CBC Comment DIFF FINAL Differential Comment Urine Color YELLOW Urine Turbidity CLEAR Urine pH 7.0 Urine Specific [place] 1.022 Urine Protein NEG mg/dL Urine Glucose (UA) NEG mg/dL Urine Ketones NEG mg/dL Urine Occult Blood NEG Urine Nitrite NEG Urine Bilirubin NEG Urine Urobilinogen LESS THAN 2.0 MG/DL Urine Leukocyte Esterase NEG Urine RBC LESS THAN 1 /hpf Urine WBC LESS THAN 1 /hpf Urine Mucus FEW /lpf Microscopic Urinalysis Comment CULT NOT INDICATED Blood Urea Nitrogen 21 MG/DL Creatinine 1.21 MG/DL Random Glucose 103 MG/DL Total Protein 8.5 GM/DL Albumin 4.0 GM/DL Calcium Level 9.1 MG/DL Alkaline Phosphatase 92 U/L Aspartate Amino Transf (AST/SGOT) 23 U/L Alanine Aminotransferase (ALT/SGPT) 36 U/L Total Bilirubin 0.2 MG/DL Sodium Level 139 MEQ/L Potassium Level 4.3 MEQ/L Chloride Level 104 MEQ/L Carbon Dioxide Level 30.2 MEQ/L Anion Gap 5 MEQ/L Estimat Glomerular Filtration Rate 60 ML/MIN MDM Medical Decision Making Medical Screen Exam Complete: Yes Emergency Medical Condition: Yes Differential Diagnosis gastritis vs diverticultis vs colitis, vs SBO vs ileus ,other Narrative Course i saw patient did PE and base on HPI and PMHx --gave NS and antiemetics and Protonix and ordered CT , then shift change before I could re-eval .. so pt signed out to 0ncoming Attending Scripts Sucralfate (Carafate) 1 Gram Tab 1 GM PO QID for Ulcer Prevention, #120 TAB 0 Refills On empty stomach Prov: Star Dozier MD 11/25/17 Deyvi San MD Nov 25, 2017 06:42
[2017-11-25 06:54] LABS: ALT (GPT) 36 U/L (12-78); AST (GOT) 23 U/L (15-37); BICARBONATE 30.2 MEQ/L (21.0-32.0); BLOOD UREA NITROGEN 21 MG/DL (7-18); CALCIUM 9.1 MG/DL (8.5-10.1); CHLORIDE 104 MEQ/L (98-107); CREATININE 1.21 MG/DL (0.60-1.30); GLOMERULAR FILTRATION RATE 60 ML/MIN (>89); GLUCOSE,RANDOM 103 MG/DL (74-106); SODIUM (NA) 139 MEQ/L (136-145)
[2017-11-25 06:56] LABS: ALKALINE PHOSPHATASE 92 U/L (45-117); TOTAL BILIRUBIN ADULT 0.2 MG/DL (0.2-1.0); TOTAL PROTEIN 8.5 GM/DL (6.4-8.2)
[2017-11-25] MEDS ORDERED: FAMOTIDINE 20 MG/2 ML VIAL IV PUSH ONE (07:00)
[2017-11-25] MEDS ORDERED: ONDANSETRON HCL 4 MG/2 ML VIAL IV PUSH ONE (07:00)
[2017-11-25 07:05] VITALS: BP 142/81; PULSE 68; RESP 17; TEMP 97.8; O2SAT 99
--- NOTE | 2017-11-25 07:24 | PD ---
Physical Exam Narrative Patient was seem ED physician and signed out to me. Data Data Last Documented VS Vital Signs Date Time Temp Pulse Resp B/P (MAP) Pulse Ox O2 Delivery O2 Flow Rate FiO2 11/25/17 07:05 78 17 11/25/17 07:05 97.8 142/81 (101) 99 Room Air Orders Orders Urinalysis - C+S If Indicated (11/25/17 06:07) Complete Blood Count With Diff (11/25/17 06:07) Comprehensive Metabolic Panel (11/25/17 06:07) Ct Abd/Pel W Iv Contrast(Rout) (11/25/17 ) Diatrizoate Liq ( Gastroview Liq) (11/25/17 06:43) Oral Contrast - Adult (11/25/17 06:47) Ondansetron Inj (Zofran Inj) (11/25/17 07:00) Famotidine Inj (Pepcid Inj) (11/25/17 07:00) Iohexol 350 Inj (Omnipaque 350 Inj) (11/25/17 08:19) Labs Laboratory Tests Test 11/25/17 06:10 White Blood Count 10.6 TH/MM3 Red Blood Count 6.15 MIL/MM3 Hemoglobin 17.5 GM/DL Hematocrit 53.1 % Mean Corpuscular Volume 86.2 FL Mean Corpuscular Hemoglobin 28.5 PG Mean Corpuscular Hemoglobin Concent 33.0 % Red Cell Distribution Width 15.0 % Platelet Count 218 TH/MM3 Mean Platelet Volume 9.4 FL Neutrophils (%) (Auto) 69.2 % Lymphocytes (%) (Auto) 18.1 % Monocytes (%) (Auto) 9.5 % Eosinophils (%) (Auto) 2.6 % Basophils (%) (Auto) 0.6 % Neutrophils # (Auto) 7.3 TH/MM3 Lymphocytes # (Auto) 1.9 TH/MM3 Monocytes # (Auto) 1.0 TH/MM3 Eosinophils # (Auto) 0.3 TH/MM3 Basophils # (Auto) 0.1 TH/MM3 CBC Comment DIFF FINAL Differential Comment Urine Color YELLOW Urine Turbidity CLEAR Urine pH 7.0 Urine Specific [place] 1.022 Urine Protein NEG mg/dL Urine Glucose (UA) NEG mg/dL Urine Ketones NEG mg/dL Urine Occult Blood NEG Urine Nitrite NEG Urine Bilirubin NEG Urine Urobilinogen LESS THAN 2.0 MG/DL Urine Leukocyte Esterase NEG Urine RBC LESS THAN 1 /hpf Urine WBC LESS THAN 1 /hpf Urine Mucus FEW /lpf Microscopic Urinalysis Comment CULT NOT INDICATED Blood Urea Nitrogen 21 MG/DL Creatinine 1.21 MG/DL Random Glucose 103 MG/DL Total Protein 8.5 GM/DL Albumin 4.0 GM/DL Calcium Level 9.1 MG/DL Alkaline Phosphatase 92 U/L Aspartate Amino Transf (AST/SGOT) 23 U/L Alanine Aminotransferase (ALT/SGPT) 36 U/L Total Bilirubin 0.2 MG/DL Sodium Level 139 MEQ/L Potassium Level 4.3 MEQ/L Chloride Level 104 MEQ/L Carbon Dioxide Level 30.2 MEQ/L Anion Gap 5 MEQ/L Estimat Glomerular Filtration Rate 60 ML/MIN [facility] Supervised Visit with CHAY: No Interpretation(s) 7:26 AM. CBC within normal limit. CMP within normal limit. BUN 21. UA is negative. 8 56 AM. Last Impressions Abdomen/Pelvis CT 11/25/17 0000 Signed Impressions: Service Date/Time: Saturday, November 25, 2017 08:03 - CONCLUSION: 1. Uncomplicated colonic diverticulosis. 2. Mildly prominent prostate. 3. 12 mm low density lesion within the right lobe of liver which is nonspecific. 4. Degenerative changes throughout the thoracolumbar spine. Eligio Read MD Diagnosis Primary Impression: Abdominal pain Qualified Codes: R10.30 - Lower abdominal pain, unspecified Patient Instructions: General Instructions Additional Instruction: Continue with AcipHex. Carafate as directed. Follow-up with personal physician. Return if worse. Med/Other Pt SpecificInfo: Prescription(s) given Scripts Sucralfate (Carafate) 1 Gram Tab 1 GM PO QID for Ulcer Prevention, #120 TAB 0 Refills On empty stomach Prov: Star Dozier MD 11/25/17 Disposition: 01 DISCHARGE HOME Condition: Stable Star Dozier MD Nov 25, 2017 07:24
[2017-11-25] MEDS ORDERED: IOHEXOL 350 MG/ML 10 ML VIAL (for RAD DIAG) IVCONTRAST ONE (08:19)
--- NOTE | 2017-11-25 08:34 | RADRPT ---
EXAM DATE/TIME: 11/25/2017 08:03 [place] COMPARISON: CT ABDOMEN & PELVIS W CONTRAST, February 25, 2017, 9:41. INDICATIONS : Right lower quadrant pain. IV CONTRAST: 95 cc Omnipaque 350 (iohexol) IV ORAL CONTRAST: Prescribed oral contrast ingested. RADIATION DOSE: 8.18 CTDIvol (mGy) MEDICAL HISTORY : Chronic obstructive pulmonary disease. Diverticulitis. Gastroesophageal reflux disease.Renal stones SURGICAL HISTORY : Cholecystectomy. ENCOUNTER: Initial ACUITY: 1 day PAIN SCALE: 5/10 LOCATION: Right lower quadrant TECHNIQUE: Volumetric scanning of the abdomen and pelvis was performed. Using automated exposure control and ad justment of the mA and/or kV according to patient size, radiation dose was kept as low as reasonably achievable to obtain optimal diagnostic quality images. DICOM format image data is available electro nically for review and comparison. FINDINGS: LOWER LUNGS: The visualized lower lungs are clear. LIVER: There is a stable 12 mm low density lesion within the right lobe of the liver which is nonspecific. T here is no dilation of the biliary tree. The patient is status post cholecystectomy. No calcified ga llstones. SPLEEN: Normal size without lesion. PANCREAS: Within normal limits. KIDNEYS: Normal in size and shape. There is no mass, stone or hydronephrosis. ADRENAL GLANDS: Within normal limits. VASCULAR: There is no aortic aneurysm. BOWEL/MESENTERY: Uncomplicated colonic diverticulosis is noted. No acute diverticulitis is noted ABDOMINAL WALL: Within normal limits. RETROPERITONEUM: There is no lymphadenopathy. BLADDER: No wall thickening or mass. REPRODUCTIVE: The prostate is mildly prominent. INGUINAL: There is no lymphadenopathy or hernia. MUSCULOSKELETAL: Degenerative changes are noted throughout the thoracolumbar spine. CONCLUSION: 1. Uncomplicated colonic diverticulosis. 2. Mildly prominent prostate. 3. 12 mm low density lesion within the right lobe of liver which is nonspecific. 4. Degenerative changes throughout the thoracolumbar spine. Eligio Read MD on November 25, 2017 at 8:26 Board Certified Radiologist. This report was verified electronically.
[2017-11-25] MEDS ORDERED: CARA1TAB6 PO (09:02)
[2017-11-25 09:05] VITALS: BP 126/81; TEMP 97.8
== END 2017-11-25 09:05 | disposition home or self-care (01) ==
LOC: NEPE 05:47
DX: R10.31 Right lower quadrant pain (principal); R11.0 Nausea; J44.9 Chronic obstructive pulmonary disease, unspecified
CPT/HCPCS: 74177; 80053; 81001; 85025; 96374; 96375; 99285; J2405; Q9963; Q9967